=== PATIENT | male | born 1950 | race Caucasian/White ===

== ENCOUNTER 2020-09-13 15:29 | Inpatient (IN) | payer MEDICARE ==
[2020-09-13] MEDS ORDERED: SODIUM CHLORIDE 0.9% 1,000 ML IV ONE ×2 (15:38→17:05)
[2020-09-13] MEDS ORDERED: AMPICILLIN-SULBACTAM 3 GM in SODIUM CHLORIDE 0.9% 100 ML IVPB STA (15:43)
[2020-09-13] MEDS ORDERED: PANTOPRAZOLE 40 MG/10 ML VIAL IVP STA (15:44)
--- NOTE | 2020-09-13 15:51 | ED ---
General Adult HPI - General Stated complaint: unresponsive Time Seen by Provider: 09/13/20 15:31 Source: family, EMS, RN notes reviewed, old records reviewed Limitations: altered mental status, physical limitation - History of Present Illness Initial comments: 69-year-old male brought in by EMS after neighbors had called for follow-up smell coming from the patient's apartment. EMS found the patient face down with pressure necrosis to the face and chest. He was breathing spontaneously, bradycardic and hypothermic. Uncertain of the blood pressure during transport. According to the patient's sister he did have previous history of alcohol abuse, depression. Uncertain exactly how long the patient had been down in his apartment. No history obtained from the patient. - Related Data Home Medications Medication Instructions Recorded Confirmed Albuterol Sulfate [Ventolin HFA] 1 - 2 puff INHALATION RT-Q4H 09/13/20 09/13/20 Escitalopram Oxalate [Lexapro] 5 mg PO DAILY 09/13/20 09/13/20 Allergies Allergy/AdvReac Type Severity Reaction Status Date / Time No Known Allergies Allergy Unverified 09/13/20 17:43 Review of Systems ROS Statement: Those systems with pertinent positive or pertinent negative responses have been documented in the HPI. ROS Other: All systems not noted in ROS Statement are negative. General Exam General appearance: obtunded, in distress Head exam: Present: other (Edema to the left face, earlobe, periorbital region with pressure necrosis to the left cheek) Eye exam: Present: PERRL, periorbital swelling ENT exam: Present: mucous membranes dry, other (Coffee-ground emesis) Respiratory exam: Present: respiratory distress, rhonchi, other (Tachypneic. Chest wall has necrosis, edema and soft tissue swelling predominantly left- sided) Cardiovascular Exam: Present: normal rhythm, bradycardia GI/Abdominal exam: Present: soft. Absent: distended, tenderness Extremities exam: Present: other (Bilateral feet are cyanotic with dry gangrene distally) Skin exam: Present: cyanosis, pallor, mottled, abrasion, other (Pressure necrosis, left cheek, and chest) Course Vital Signs 09/13/20 09/13/20 15:40 16:15 Temperature 84.6 F L 87.4 F L Pulse Rate 66 57 L Respiratory 18 18 Rate Blood Pressure 130/112 117/80 O2 Sat by Pulse 100 99 Oximetry - Reevaluation(s) Reevaluation #1: 09/13/20 16:07 I did discuss at length with the patient's sister Perlita patient's CODE STATUS and she states that he would not want to be on life support. At this time the patient will be managed medically without intubation, or CPR. EKG Findings - EKG Comments: EKG Findings:: EKG: Sinus bradycardia, baseline artifact there are complex rate of 57, WI interval 146, QRS duration 104, QTC 502 Medical Decision Making - Medical Decision Making 69-year-old who had presented in very poor condition, likely swetha-arrest. Patient has spontaneous respirations, he is pressure necrosis to the face and chest. He has cyanotic feet. He is in sinus rhythm narrow complex. Initial blood pressures are low. He is hypothermic. I did have a long discussion with his sister regarding CODE STATUS and at this time the patient will be no CPR, no intubation but medical management is acceptable. Workup does show acute intracranial hemorrhage with the within the right and turn. No midline shift. He has a normal CBC. He is acidotic which is likely secondary to both lactic acid and uremia. His BUN is 216. His creatinine is 9.6. Urinalysis greater than 182 red cells greater than 182 white cells. He is severely dehydrated however there is a component of some fluid shifts and some anasarca on exam. He is loaded with antibiotics, protonix, normal saline. Discussed the case with the admitting physician Dr. Paiz as well as neurology Dr. Renteria. We will continue to treat this patient medically but he will be a DO NOT INTUBATE and do not perform CPR. I did clarify CODE STATUS with the sister and at this time the patient will be no code. We will continue IV fluids and recheck laboratory studies in the morning. At that time the decision will be made for continued medical treatment or comfort care. - Lab Data Result diagrams: 09/13/20 16:17 09/13/20 16:17 Lab Results 09/13/20 09/13/20 09/13/20 Range/Units 16:10 16:17 16:17 WBC 10.4 (3.8-10.6) k/uL RBC 5.16 (4.30-5.90) m/uL Hgb 16.9 (13.0-17.5) gm/dL Hct 54.4 H (39.0-53.0) % MCV 105.5 H (80.0-100.0) fL MCH 32.8 (25.0-35.0) pg MCHC 31.1 (31.0-37.0) g/dL RDW 14.4 (11.5-15.5) % Plt Count 161 (150-450) k/uL MPV 11.6 Neutrophils % 86 % Lymphocytes % 7 % Monocytes % 6 % Eosinophils % 1 % Basophils % 0 % Neutrophils # 8.9 H (1.3-7.7) k/uL Lymphocytes # 0.7 L (1.0-4.8) k/uL Monocytes # 0.6 (0-1.0) k/uL Eosinophils # 0.1 (0-0.7) k/uL Basophils # 0.1 (0-0.2) k/uL Manual Slide Review Performed Large Platelets Present Hypochromasia Slight Macrocytosis Moderate PT 12.5 H (9.0-12.0) sec INR 1.2 H (<1.2) APTT 25.2 (22.0-30.0) sec VBG pH (7.31-7.41) VBG pCO2 (37-51) mmHg VBG HCO3 (24-28) mmol/L Sodium (137-145) mmol/L Potassium (3.5-5.1) mmol/L Chloride (98-107) mmol/L Carbon Dioxide (22-30) mmol/L Anion Gap mmol/L BUN (9-20) mg/dL Creatinine (0.66-1.25) mg/dL Est GFR (CKD-EPI)AfAm (>60 ml/min/1.73 sqM) Est GFR (CKD-EPI)NonAf (>60 ml/min/1.73 sqM) Glucose (74-99) mg/dL POC Glucose (mg/dL) 130 H (75-99) mg/dL POC Glu Regional Education Manager ID Taylor Fermin Calcium (8.4-10.2) mg/dL Magnesium (1.6-2.3) mg/dL Total Bilirubin (0.2-1.3) mg/dL AST (17-59) U/L ALT (4-49) U/L Alkaline Phosphatase (38-126) U/L Creatine Kinase (55-170) U/L Troponin I (0.000-0.034) ng/mL Total Protein (6.3-8.2) g/dL Albumin (3.5-5.0) g/dL Urine Color Urine Appearance (Clear) Urine pH (5.0-8.0) Ur Specific [place] (1.001-1.035) Urine Protein (Negative) Ur Protein Confirm Urine Glucose (UA) (Negative) Urine Ketones (Negative) Urine Blood (Negative) Urine Nitrite (Negative) Urine Bilirubin (Negative) Ur Bilirubin Confirm Urine Urobilinogen (<2.0) mg/dL Ur Leukocyte Esterase (Negative) Urine RBC (0-5) /hpf Urine WBC (0-5) /hpf Urine WBC Clumps (None) /hpf Ur Squamous Epith Cells (0-4) /hpf Urine Bacteria (None) /hpf Urine Opiates Screen (NotDetected) Ur Oxycodone Screen (NotDetected) Urine Methadone Screen (NotDetected) Ur Propoxyphene Screen (NotDetected) Ur Barbiturates Screen (NotDetected) U Tricyclic Antidepress (NotDetected) Ur Phencyclidine Scrn (NotDetected) Ur Amphetamines Screen (NotDetected) U Methamphetamines Scrn (NotDetected) U Benzodiazepines Scrn (NotDetected) Urine Cocaine Screen (NotDetected) U Marijuana (THC) Screen (NotDetected) Serum Alcohol mg/dL 09/13/20 09/13/20 09/13/20 Range/Units 16:17 16:17 16:17 WBC (3.8-10.6) k/uL RBC (4.30-5.90) m/uL Hgb (13.0-17.5) gm/dL Hct (39.0-53.0) % MCV (80.0-100.0) fL MCH (25.0-35.0) pg MCHC (31.0-37.0) g/dL RDW (11.5-15.5) % Plt Count (150-450) k/uL MPV Neutrophils % % Lymphocytes % % Monocytes % % Eosinophils % % Basophils % % Neutrophils # (1.3-7.7) k/uL Lymphocytes # (1.0-4.8) k/uL Monocytes # (0-1.0) k/uL Eosinophils # (0-0.7) k/uL Basophils # (0-0.2) k/uL Manual Slide Review Large Platelets Hypochromasia Macrocytosis PT (9.0-12.0) sec INR (<1.2) APTT (22.0-30.0) sec VBG pH (7.31-7.41) VBG pCO2 (37-51) mmHg VBG HCO3 (24-28) mmol/L Sodium 151 H (137-145) mmol/L Potassium 4.7 (3.5-5.1) mmol/L Chloride 114 H (98-107) mmol/L Carbon Dioxide 10 L (22-30) mmol/L Anion Gap 27 mmol/L BUN 216 H* (9-20) mg/dL Creatinine 9.63 H* (0.66-1.25) mg/dL Est GFR (CKD-EPI)AfAm 6 (>60 ml/min/1.73 sqM) Est GFR (CKD-EPI)NonAf 5 (>60 ml/min/1.73 sqM) Glucose 136 H (74-99) mg/dL POC Glucose (mg/dL) (75-99) mg/dL POC Glu Regional Education Manager ID Calcium 9.3 (8.4-10.2) mg/dL Magnesium 3.6 H (1.6-2.3) mg/dL Total Bilirubin 0.7 (0.2-1.3) mg/dL AST 194 H (17-59) U/L ALT 68 H (4-49) U/L Alkaline Phosphatase 72 (38-126) U/L Creatine Kinase 815 H (55-170) U/L Troponin I 0.101 H* (0.000-0.034) ng/mL Total Protein 6.6 (6.3-8.2) g/dL Albumin 3.0 L (3.5-5.0) g/dL Urine Color Light Brown Urine Appearance Turbid (Clear) Urine pH 8.0 (5.0-8.0) Ur Specific [place] 1.050 H (1.001-1.035) Urine Protein 3+ H (Negative) Ur Protein Confirm Not Reportable Urine Glucose (UA) Negative (Negative) Urine Ketones Negative (Negative) Urine Blood Small (Negative) Urine Nitrite Negative (Negative) Urine Bilirubin Negative (Negative) Ur Bilirubin Confirm Not Reportable Urine Urobilinogen <2.0 (<2.0) mg/dL Ur Leukocyte Esterase Large (Negative) Urine RBC >182 H (0-5) /hpf Urine WBC >182 H (0-5) /hpf Urine WBC Clumps Many H (None) /hpf Ur Squamous Epith Cells 18 H (0-4) /hpf Urine Bacteria Many H (None) /hpf Urine Opiates Screen (NotDetected) Ur Oxycodone Screen (NotDetected) Urine Methadone Screen (NotDetected) Ur Propoxyphene Screen (NotDetected) Ur Barbiturates Screen (NotDetected) U Tricyclic Antidepress (NotDetected) Ur Phencyclidine Scrn (NotDetected) Ur Amphetamines Screen (NotDetected) U Methamphetamines Scrn (NotDetected) U Benzodiazepines Scrn (NotDetected) Urine Cocaine Screen (NotDetected) U Marijuana (THC) Screen (NotDetected) Serum Alcohol <10 mg/dL 09/13/20 09/13/20 Range/Units 16:17 16:17 WBC (3.8-10.6) k/uL RBC (4.30-5.90) m/uL Hgb (13.0-17.5) gm/dL Hct (39.0-53.0) % MCV (80.0-100.0) fL MCH (25.0-35.0) pg MCHC (31.0-37.0) g/dL RDW (11.5-15.5) % Plt Count (150-450) k/uL MPV Neutrophils % % Lymphocytes % % Monocytes % % Eosinophils % % Basophils % % Neutrophils # (1.3-7.7) k/uL Lymphocytes # (1.0-4.8) k/uL Monocytes # (0-1.0) k/uL Eosinophils # (0-0.7) k/uL Basophils # (0-0.2) k/uL Manual Slide Review Large Platelets Hypochromasia Macrocytosis PT (9.0-12.0) sec INR (<1.2) APTT (22.0-30.0) sec VBG pH 7.02 L* (7.31-7.41) VBG pCO2 47 (37-51) mmHg VBG HCO3 11 L (24-28) mmol/L Sodium (137-145) mmol/L Potassium (3.5-5.1) mmol/L Chloride (98-107) mmol/L Carbon Dioxide (22-30) mmol/L Anion Gap mmol/L BUN (9-20) mg/dL Creatinine (0.66-1.25) mg/dL Est GFR (CKD-EPI)AfAm (>60 ml/min/1.73 sqM) Est GFR (CKD-EPI)NonAf (>60 ml/min/1.73 sqM) Glucose (74-99) mg/dL POC Glucose (mg/dL) (75-99) mg/dL POC Glu Regional Education Manager ID Calcium (8.4-10.2) mg/dL Magnesium (1.6-2.3) mg/dL Total Bilirubin (0.2-1.3) mg/dL AST (17-59) U/L ALT (4-49) U/L Alkaline Phosphatase (38-126) U/L Creatine Kinase (55-170) U/L Troponin I (0.000-0.034) ng/mL Total Protein (6.3-8.2) g/dL Albumin (3.5-5.0) g/dL Urine Color Urine Appearance (Clear) Urine pH (5.0-8.0) Ur Specific [place] (1.001-1.035) Urine Protein (Negative) Ur Protein Confirm Urine Glucose (UA) (Negative) Urine Ketones (Negative) Urine Blood (Negative) Urine Nitrite (Negative) Urine Bilirubin (Negative) Ur Bilirubin Confirm Urine Urobilinogen (<2.0) mg/dL Ur Leukocyte Esterase (Negative) Urine RBC (0-5) /hpf Urine WBC (0-5) /hpf Urine WBC Clumps (None) /hpf Ur Squamous Epith Cells (0-4) /hpf Urine Bacteria (None) /hpf Urine Opiates Screen Not Detected (NotDetected) Ur Oxycodone Screen Not Detected (NotDetected) Urine Methadone Screen Not Detected (NotDetected) Ur Propoxyphene Screen Not Detected (NotDetected) Ur Barbiturates Screen Not Detected (NotDetected) U Tricyclic Antidepress Not Detected (NotDetected) Ur Phencyclidine Scrn Not Detected (NotDetected) Ur Amphetamines Screen Not Detected (NotDetected) U Methamphetamines Scrn Not Detected (NotDetected) U Benzodiazepines Scrn Not Detected (NotDetected) Urine Cocaine Screen Not Detected (NotDetected) U Marijuana (THC) Screen Not Detected (NotDetected) Serum Alcohol mg/dL Critical Care Time Critical Care Time: Yes Total Critical Care Time: 35 Disposition Clinical Impression: ICH (intracerebral hemorrhage), ARF (acute renal failure) Disposition: ADMITTED IP TO THIS HOSP Condition: Poor Is patient prescribed a controlled substance at d/c from ED?: No Referrals: Sourav Robles DO [Primary Care Provider] - 1-2 days Time of Disposition: 18:11 Decision to Admit Reason: Admit from EC
[2020-09-13] MEDS ORDERED: VANCOMYCIN IV PER PHARMACY 1 EACH MISC MISCELLANE PRN ×2 (15:54→19:39)
[2020-09-13] MEDS ORDERED: THIAMINE 100 MG/ML 2 ML VIAL IVP STA (16:12)
[2020-09-13 16:20] LABS: Glucose,Whole Blood 130 mg/dL (75-99)
[2020-09-13 16:44] LABS: INR 1.2 (<1.2); Partial Thromboplastin Time 25.2 sec (22.0-30.0); Prothrombin Time 12.5 sec (9.0-12.0); VBG PH 7.02 (7.31-7.41)
[2020-09-13 16:45] LABS: Basophils # (A) 0.1 k/uL (0-0.2); Basophils % (A) 0 %; Eosinophils # (A) 0.1 k/uL (0-0.7); Eosinophils % (A) 1 %; HCT 54.4 % (39.0-53.0); HGB 16.9 gm/dL (13.0-17.5); Hypochromasia Slight; Lymphocytes # (A) 0.7 k/uL (1.0-4.8); Lymphocytes % (A) 7 %; MCH 32.8 pg (25.0-35.0); MCHC 31.1 g/dL (31.0-37.0); MCV 105.5 fL (80.0-100.0); Macrocytosis Moderate; Mean Platelet Volume 11.6; Monocytes # (A) 0.6 k/uL (0-1.0); Monocytes % (A) 6 %; Neutrophils # (A) 8.9 k/uL (1.3-7.7); Neutrophils % (A) 86 %; RBC 5.16 m/uL (4.30-5.90); RDW 14.4 % (11.5-15.5); WBC 10.4 k/uL (3.8-10.6)
[2020-09-13 16:46] LABS: Bacteria,Urine Many /hpf; RBC,Urine >182 /hpf (0-5); Squamous Epithelial Cell,Urine 18 /hpf (0-4); WBC,Urine >182 /hpf (0-5)
[2020-09-13 16:48] LABS: Platelet Count 161 k/uL (150-450)
[2020-09-13 16:51] LABS: Appearance,Urine Turbid (Clear); Color,Urine Light Brown
[2020-09-13 16:52] LABS: Bilirubin,Urine Negative (Negative); Glucose,Urine (UA) Negative (Negative); Ketones,Urine Negative (Negative); Protein,Urine 3+ (Negative)
[2020-09-13 16:53] LABS: Blood,Urine Small (Negative); Leukocyte Esterase,Urine Large (Negative); Nitrite,Urine Negative (Negative); Urobilinogen,Urine <2.0 mg/dL (<2.0)
[2020-09-13 16:54] LABS: Amphetamine Screen,Urine Not Detected (NotDetected); Barbiturate Screen,Urine Not Detected (NotDetected); Benzodiazepines Screen,Urine Not Detected (NotDetected); Cocaine Screen,Urine Not Detected (NotDetected); Methadone Screen, Urine Not Detected (NotDetected); Opiate Screen,Urine Not Detected (NotDetected); Oxycodone Screen, Urine Not Detected (NotDetected); Phencyclidine Screen,Urine Not Detected (NotDetected); Tricyclic Antidepressant,Urine Not Detected (NotDetected); Urn Cannabinoid Scrn Not Detected (NotDetected)
[2020-09-13 16:55] LABS: ALT 68 U/L (4-49); AST 194 U/L (17-59); African American GFR (CKD) 6 (>60 ml/min/1.73 sqM); Alcohol <10 mg/dL; Alkaline Phosphatase 72 U/L (38-126); Anion Gap 27 mmol/L; Calcium 9.3 mg/dL (8.4-10.2); Carbon Dioxide 10 mmol/L (22-30); Chloride 114 mmol/L (98-107); Creatine Kinase 815 U/L (55-170); Glucose 136 mg/dL (74-99); Magnesium 3.6 mg/dL (1.6-2.3); Non-African American GFR(CKD) 5 (>60 ml/min/1.73 sqM); Potassium 4.7 mmol/L (3.5-5.1); Sodium 151 mmol/L (137-145); Total Bilirubin 0.7 mg/dL (0.2-1.3); Total Protein 6.6 g/dL (6.3-8.2)
[2020-09-13] MEDS ORDERED: VANCOMYCIN 1,500 MG in SODIUM CHLORIDE 0.9% 250 ML IVPB ONE (17:00)
[2020-09-13 17:03] LABS: Large Platelets Present
--- NOTE | 2020-09-13 17:04 | XR ---
EXAMINATION TYPE: XR chest 1V portable DATE OF EXAM: 09/13/2020 COMPARISON: NONE HISTORY: Altered mental status TECHNIQUE: Single view FINDINGS: There is blunting of the costophrenic angles and more on the left side. There are chest tonny ds. Heart and mediastinum shifted slightly to the left side. There is airspace infiltrate left lower lobe. There is no obvious heart failure. IMPRESSION: There is combination of atelectasis and pleural fluid and infiltrate left lower lobe that is likely inflammatory. No obvious heart failure. Small right pleural effusion.
[2020-09-13 17:05] LABS: Blood Urea Nitrogen 216 mg/dL (9-20)
--- NOTE | 2020-09-13 17:25 | CT ---
EXAMINATION TYPE: CT brain wo con DATE OF EXAM: 09/13/2020 COMPARISON: None HISTORY: AMS CT DLP: 1078.4 mGycm Automated exposure control for dose reduction was used. Images were obtained of the brain without contrast. There is irregular 12 x 8 mm area of high attenuation in the anterior right internal capsule. This is consistent with acute hemorrhage. There is cerebral atrophy. There is no mass effect nor midline catia ft. There is some hypodensity in the periventricular white matter. The calvarium is intact. Skull bas e is intact. There is some mucosal thickening in the ethmoid and left maxillary sinus. IMPRESSION: There is increased density consistent with acute hemorrhage in the right anterior internal capsule an d acute hemorrhagic infarct. There is evidence of multiple old lacunar infarcts in the periventricula r white matter. Cerebral atrophy. Sinusitis. Multiple attempts were made to contact emergency room physician to discuss this exam but this was not successful.
[2020-09-13] MEDS: THIAMINE 200 MG in SODIUM CHLORIDE 0.9% 100 ML IVPB SCH ×2 (17:31→22:24)
[2020-09-13] MEDS: SODIUM CHLORIDE 0.9% 1,000 ML IV SCH ×2 (17:37→22:30)
[2020-09-13] MEDS ORDERED: ACETAMINOPHEN TAB 325 MG TAB PO PRN (18:01)
[2020-09-13] MEDS ORDERED: NALOXONE 0.4 MG/ML 1 ML VIAL IV PRN (18:01)
[2020-09-13] MEDS ORDERED: HYDROmorphone 0.5 MG/0.5 ML SYRINGE IVP PRN (19:40)
[2020-09-13] MEDS ORDERED: PIPERACILLIN-TAZOBACTAM 3.375 GM in SODIUM CHLORIDE 0.9% 100 ML IVPB SCH (20:00)
--- NOTE | 2020-09-13 20:51 | HP ---
HISTORY AND PHYSICAL DATE OF SERVICE: 09/13/2020 CHIEF COMPLAINT: Unresponsiveness. HISTORY OF PRESENT ILLNESS: This 69-year-old gentleman with a past medical history of apparent COPD and depression, being followed by Dr. Robles in the outpatient setting, is apparently living by himself. The patient apparently had significant alcohol abuse issues. The patient is apparently buying about a 15-pack of beer every day. The patient's sister was keeping in contact, but since she was sick she was not able to contact him for some time, and the neighbors apparently reported there was some smell of rotten potatoes coming from his apartment and EMS was called. EMS found the patient face-down with significant skin necrosis and infection in the right side of the face and extensive areas of the body and leaking also. The patient was found to be significantly hypotensive. The patient is admitted for further evaluation and treatment. The family has decided NO CODE, NO CPR, NO VENT at this time. The patient was found to be hypothermic, bradycardic and septic as well. Patient was given broad-spectrum IV antibiotics. A detailed history could not be taken from the patient because of the patient's change in mental status. Most of the history is taken from my discussion with staff and review of the chart and discussion with the ER physician. The patient has significant metabolic acidosis with acute renal failure with a creatinine of 9.63. LFTs are also elevated. Troponins are also elevated at 0.101. PAST MEDICAL HISTORY: History of COPD, history of depression. MEDICATIONS: Medications per chart include Lexapro 5 mg daily, albuterol p.r.n. ALLERGIES: NONE. Family history, social history, review of systems could not be taken at length. PHYSICAL EXAMINATION: Patient is unresponsive. Pulse 57, blood pressure 117/80, respiration 18, temperature 87.4, pulse ox 99% on 15 L. HEENT: Conjunctivae normal. Oral mucosa moist. CARDIOVASCULAR SYSTEM: S1, S2 muffled. RESPIRATORY SYSTEM: Mild diffuse scattered rhonchi. ABDOMEN: Soft, non-tender. LEGS: No edema. No swelling. NERVOUS SYSTEM: Patient is unresponsive. SKIN: Diffuse necrotic areas on the left side of the face as well as the body also present. JOINTS: No active deforming arthropathy. LYMPHATICS: No lymph node palpable in neck, axillae or groin. LABS: WBC 10.2, hemoglobin 16.9. VBG noted. Otherwise, sodium 151, creatinine 9.61. The chest x-ray, which was reviewed personally by me, showed some bilateral infiltrates and left pleural effusion. CT of the brain showed increased density consistent with acute hemorrhage in the right anterior internal capsule area and acute hemorrhagic infarct. Evidence of multiple active infarcts also noted. ASSESSMENT: 1. Possible acute sepsis from bilateral pneumonia, aspiration as well as skin necrosis and cellulitis with severe sepsis and severe hypotension. 2. Acute renal failure with acute prerenal renal failure, acute tubular necrosis. 3. Acute metabolic and respiratory acidosis. 4. Change in mental status, metabolic encephalopathy. 5. Acute right anterior internal capsule acute hemorrhagic infarct. 6. 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 7. History of alcoholism. 8. Hypernatremia. 9. Elevated random glucose. 10.Elevated AST and ALT secondary to alcoholic hepatitis. 11.Troponin 0.101, indeterminate. 12.Elevated creatine kinase with mild rhabdomyolysis. 13.NO CODE, NO CPR, NO VENT. 14.Possible depression. 15.Possible chronic obstructive pulmonary disease. RECOMMENDATIONS AND DISCUSSION: In this 69-year-old gentleman who presented with multiple complex medical problems, we will monitor the patient closely. Will initiate IV fluids, boluses, empiric antibiotics. Closely monitor. The patient is NO CODE, NO CPR, NO VENT. The case was discussed at length with the family, who understands and agrees. The prognosis is extremely guarded because of the multiple complex medical issues. The patient will be continuously monitored. Further recommendations to follow. A copy of this dictation is being forwarded to Dr. Robles, who is the primary physician. Neurology and Nephrology also have been consulted. See orders for further details. Patient was started on Zosyn and vancomycin. MMODL / IJN: [id number] /
[2020-09-13] MEDS ORDERED: HEPARIN SODIUM,PORCINE/PF 5,000 UNIT/0.5 ML SYRINGE SQ SCH (21:00)
[2020-09-13 22:39] VITALS: RESP 14; TEMP 93.7
[2020-09-13 22:43] VITALS: BP 74/35; PULSE 59
[2020-09-14] MEDS ORDERED: PANTOPRAZOLE 40 MG/10 ML VIAL IVP SCH
[2020-09-14] MEDS ORDERED: AMPICILLIN-SULBACTAM 3 GM in SODIUM CHLORIDE 0.9% 100 ML IVPB SCH ×2
[2020-09-14] MEDS ORDERED: VANCOMYCIN 1,500 MG in SODIUM CHLORIDE 0.9% 250 ML IVPB ONE (12:00)
--- NOTE | 2020-09-14 19:42 | DS ---
DISCHARGE SUMMARY DATE OF SERVICE: 09/14/2020 PRIMARY CAUSE OF : Sepsis secondary from bilateral pneumonia, aspiration pneumonia as well as skin necrosis and cellulitis and severe sepsis and hypotension and septic shock. OTHER DIAGNOSES: 1. Acute renal failure with acute tubular necrosis with prerenal factors. 2. Acute metabolic and respiratory acidosis. 3. Change in mental status, acute metabolic encephalopathy. 4. Acute right anterior interior capsule, acute hemorrhagic infarct. 5. 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 6. History of alcoholism. 7. Hypernatremia. 8. Elevated random glucose. 9. Elevated AST, ALT secondary to alcoholic hepatitis. 10.Troponin 0.101, indeterminate. 11.Elevated creatine kinase with mild rhabdomyolysis. 12.Possible chronic obstructive pulmonary disease history. 13.History of depression. 14.NO CODE, NO CPR, NO VENT. HISTORY OF PRESENT ILLNESS: This 69-year-old gentleman with a past medical history of multiple medical problems, as mentioned earlier, was found unresponsive after neighbors noted some foul smell. EMS found the patient lying down unconscious. The exact duration of the unconsciousness is unknown at this time. The patient had features of sepsis, as mentioned early, and also had multiple other complex medical issues. Creatinine was elevated. The patient was treated medically. The case was discussed with the family. The patient was NO CODE, NO CPR, NO VENT. The patient succumbed to his above-mentioned multiple complex medical issues. Please refer to the staff notes and nurses' notes as well as the history and physical for further information. MMODL / IJN: [id number] /
--- NOTE | 2020-10-05 12:31 | CDI ---
Documentation Clarification Form Date: 10/05/2020 12:13:28 PM From: Melina HowardArmasARIC, CCDS Admit Date: 09/13/2020 06:01:00 PM Patient Name: John Arambula Visit Number: [id number] Discharge Date: 09/13/2020 11:27:00 PM ATTENTION: The Clinical Documentation Specialists (CDI) and [facility] Coding Staff appreciate your assistance in clarifying documentation. Please respond to the clarification below the line at the bottom and electronically sign. The CDI & [facility] Coding staff will review the response and follow-up if needed. Please note: Queries are made part of the Legal Health Record. If you have any questions, please contact the author of this message via ITS. Dr. Brisa Kirby: This patient presented to the ED on 09/13 and shortly after the same day due to multiple conditions. Per the 09/14 Discharge Summary, the Primary Cause of was Sepsis secondary from Bilateral Pneumonia, Aspiration Pneumonia, Skin Necrosis and Cellulitis and Severe Sepsis and Hypotension and Septic Shock. Additional clarification regarding the type of Sepsis is requested. History/Risk Factors per the 09/14 H/P: COPD, Alcohol Abuse, Depression. Clinical Indicators: Presented to the ED 09/13 via EMS after neighbors called regarding smell from the patient's apartment. ED Clinical Impression: Intracerebral Hemorrhage, Acute Renal Failure. 09/13 VS: T 84.6 (rectal), P 66 - 56, Resp: 18 - 27, BP 120/112 - 80/46, PO 100 on 15% nrb. 09/13 LAB: WBC 10.4, Hct 54.4, Neut 8.9, Lymph 0.7, PT 12.5, INR 1.2, Na 151, Cl 114, CO2 10, BUN 216, Cr 9.63, Glucose 136, Mag 3.6, AST 194, ALT 68, Cr Kinase 815, Troponin 0.101, Albumin 3.0 VBG Blood gas: pH 7.02, pCO2 47, HCO3 11 UA: Lt Brown, Turbid, Sp Gr 1.050, 3+ Protein, RBC >182, WBC >182 Cultures: Blood Cx #1: Final: Negative. #2: Final: Serratia marcescens, Proteus mirabilis. #3: Final: Negative. #4: Final: Serratia marcescens. Urine Culture: Final: Proteus mirabilis. 09/13 Toxicology: neg. Serum Alcohol: <10 09/13 CXR: There is combination of atelectasis and pleural fluid and infiltrate left lower lobe that is likely inflammatory. No obvious heart failure. Small right pleural effusion. 09/13 CT Brain: There is increased density consistent with acute hemorrhage in the right anterior internal capsule and acute hemorrhagic infarct. 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 Cerebral atrophy. Sinusitis. Treatment: IV Fl NaCl 1,000 mls @ 999 mls/hr q1H x2, IV Ampicillin x1, IV Protonix, IV Vancomycin x1, IV Zosyn q8H. In your professional opinion, please clarify the type of Sepsis if known: [ ] Sepsis due to (Please specify organism): [ ] Other, please specify [ ] Unable to determine (Template Last Reviewed: June 2020) Sepsis due to pneumonia MTDD
--- NOTE | 2020-10-05 12:34 | CDI ---
Documentation Clarification Form Date: 10/05/2020 12:31:53 PM From: Melina HowardArmasARIC, CCDS Admit Date: 09/13/2020 06:01:00 PM Patient Name: John Arambula Visit Number: [id number] Discharge Date: 09/13/2020 11:27:00 PM ATTENTION: The Clinical Documentation Specialists (CDI) and [facility] Coding Staff appreciate your assistance in clarifying documentation. Please respond to the clarification below the line at the bottom and electronically sign. The CDI & [facility] Coding staff will review the response and follow-up if needed. Please note: Queries are made part of the Legal Health Record. If you have any questions, please contact the author of this message via ITS. Dr. Brisa Kirby: This patient presented to the ED on 09/13 and shortly after the same day due to multiple conditions. Per the 09/14 Discharge Summary, the Primary Cause of was Sepsis secondary from Bilateral Pneumonia, Aspiration Pneumonia, Skin Necrosis and Cellulitis and Severe Sepsis and Hypotension and Septic Shock. Additional information regarding the patient's respiratory status is requested. History/Risk Factors per the 09/14 H/P: COPD, Alcohol Abuse, Depression. Clinical Indicators: Presented to the ED 09/13 via EMS after neighbors called regarding smell from the patient's apartment. ED Clinical Impression: Intracerebral Hemorrhage, Acute Renal Failure. 09/13 VS: T 84.6 (rectal), P 66 - 56, Resp: 18 - 27, BP 120/112 - 80/46, PO 100 on 15% nrb. 09/13 LAB: WBC 10.4, Hct 54.4, Neut 8.9, Lymph 0.7, PT 12.5, INR 1.2, Na 151, Cl 114, CO2 10, BUN 216, Cr 9.63, Glucose 136, Mag 3.6, AST 194, ALT 68, Cr Kinase 815, Troponin 0.101, Albumin 3.0 VBG Blood gas: pH 7.02, pCO2 47, HCO3 11 UA: Lt Brown, Turbid, Sp Gr 1.050, 3+ Protein, RBC >182, WBC >182 Cultures: Blood Cx #1: Final: Negative. #2: Final: Serratia marcescens, Proteus mirabilis. #3: Final: Negative. #4: Final: Serratia marcescens. Urine Culture: Final: Proteus mirabilis. 09/13 Toxicology: neg. Serum Alcohol: <10 09/13 CXR: There is combination of atelectasis and pleural fluid and infiltrate left lower lobe that is likely inflammatory. No obvious heart failure. Small right pleural effusion. 09/13 CT Brain: There is increased density consistent with acute hemorrhage in the right anterior internal capsule and acute hemorrhagic infarct. 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 Cerebral atrophy. Sinusitis. Treatment: 15% NRB, IV Fl NaCl 1,000 mls @ 999 mls/hr q1H x2, IV Ampicillin x1, IV Protonix, IV Vancomycin x1, IV Zosyn q8H Is there an additional diagnosis that is clinically appropriate for this patient? [ ] Acute Hypoxic Respiratory Failure [ ] Acute Hypercapnic Respiratory Failure [ ] Acute on Chronic Respiratory Failure [ ] Chronic Respiratory Failure [ ] Other Diagnosis, please specify [ ] Unable to determine (Template Last Revised: July 2020) Acute Hypoxic Respiratory Failure MTDD
== END 2020-09-13 23:27 | disposition expired | DRG 871 ==
LOC: EC 15:29 → 3SCARD 18:01
PROVIDERS: ADMIT Internal Medicine; ATTEND Internal Medicine
DX: A41.9 Sepsis, unspecified organism (principal); G93.41 Metabolic encephalopathy; I61.9 Nontraumatic intracerebral hemorrhage, unspecified; N17.0 Acute kidney failure with tubular necrosis; J69.0 Pneumonitis due to inhalation of food and vomit; R65.21 Severe sepsis with septic shock; J96.00 Acute respiratory failure, unspecified whether with hypoxia or hypercapnia; E87.0 Hyperosmolality and hypernatremia; E87.4 Mixed disorder of acid-base balance; I96 Gangrene, not elsewhere classified; M62.82 Rhabdomyolysis; L03.90 Cellulitis, unspecified; E86.0 Dehydration; K70.10 Alcoholic hepatitis without ascites; L89.816 Pressure-induced deep tissue damage of head; L89.896 Pressure-induced deep tissue damage of other site; J44.9 Chronic obstructive pulmonary disease, unspecified; Z66 Do not resuscitate; F10.20 Alcohol dependence, uncomplicated; R22.0 Localized swelling, mass and lump, head; F32.9 Major depressive disorder, single episode, unspecified; R68.0 Hypothermia, not associated with low environmental temperature; R77.8 Other specified abnormalities of plasma proteins; Z60.2 Problems related to living alone; Z86.73 Personal history of transient ischemic attack (TIA), and cerebral infarction without residual deficits; Z79.899 Other long term (current) drug therapy
CPT/HCPCS: 36415; 70450; 71045; 80053; 80306; 80320; 81001; 82550; 82803; 83605; 83735; 84484; 85025; 85610; 85730; 87040; 87077; 87086; 87186; 93005; 96365; 96367; 96375; 99291